=== PATIENT | female | born 1970 | race Two or more races ===

== ENCOUNTER 2018-12-08 06:44 | Emergency (ER) | payer SELFPAY ==
[~2018-12-08] VITALS: Ht 167.6 cm; Wt 59.0 kg
[2018-12-08 07:05] VITALS: BP 90/65
--- NOTE | 2018-12-08 07:05 | NUR ---
ED Nurse Note: pt walked in due to blood shot left eye started 3 days ago. pt denies pain, only discomfort. pt denies trauma. pt is seen by ermd. will continue to monitor.
--- NOTE | 2018-12-08 07:12 | Emergency Room Report ---
History of Present Illness General Chief Complaint: Eye Problems Source: Patient Present Illness HPI 48 year old female hx of smoking presents with redness of her left eye painless in nature that started 3 days ago, no aggravating or relieving factors, no change in vision. Patient denies any chest pain shortness of breath, patient presents for evaluation of her left eye. Allergies: Coded Allergies: No Known Allergies (Unverified , 12/08/18) Patient History Past Medical History: see triage record Social History: Reports: smoking Last Menstrual Period: 12/06/18 Now: No : 2 Para: 2 Reviewed Nursing Documentation: PMH: Agreed; PSxH: Agreed Nursing Documentation-PMH History Of Psychiatric Problem: Yes - anxiety Review of Systems Eye: Denies: eye pain, blurred vision, tearing, double vision, discharge All Other Systems: negative except mentioned in HPI Physical Exam Vital Signs Date Time Temp Pulse Resp B/P (MAP) Pulse Ox O2 Delivery O2 Flow Rate FiO2 12/08/18 06:52 97.9 75 16 90/65 (73) 97 Room Air Sp02 EP Interpretation: reviewed, normal General Appearance: well appearing, no apparent distress, alert Head: normocephalic, atraumatic Eyes: left eye other - Redness of the conjunctiva consistent with subconjunctival hemorrhage; bilateral eye PERRL, bilateral eye EOMI ENT: uvula midline, moist mucus membranes Neck: supple, thyroid normal, supple/symm/no masses Respiratory: lungs clear, no respiratory distress, no retraction, no accessory muscle use Cardiovascular #1: normal peripheral pulses, regular rate, rhythm, no edema, no gallop, no murmur Gastrointestinal: non tender, soft, no guarding, no rebound Musculoskeletal: normal inspection Neurologic: alert, oriented x3 Psychiatric: mood/affect normal Skin: no rash, warm/dry Medical Decision Making Diagnostic Impression: Primary Impression: Subconjunctival hemorrhage of left eye ER Course Patient with subconjunctival hemorrhage of the left eye no acute processes, repeat blood pressure normalized, patient reassured, smoking cessation counseling given to promote healing The patient was questioned about the use of tobacco products and subsequently identified as a SMOKER. As a result of this disclosure, I gave litigation counsel regarding the health risk and hazards of tobacco abuse and the benefits of smoking cessation. Time was allotted to answer questions and to provide information regarding counseling/modalities for assistance with quitting. Counseling included identifying barriers to change, suggesting specific actions for change, motivational counseling and follow up instructions. Time spent: 5 mins. Last Vital Signs Date Time Temp Pulse Resp B/P (MAP) Pulse Ox O2 Delivery O2 Flow Rate FiO2 12/08/18 06:52 97.9 75 16 90/65 (73) 97 Room Air Disposition: HOME, SELF-CARE Condition: Stable Referrals: OPHTHALMOLOGY Patient Instructions: Subconjunctival Hemorrhage Additional Instructions: The patient was provided with discharge instructions, notified to follow-up with a primary care doctor and or specialist in the next 24-48 hours, and to return to the ED if they have worsening of their symptoms. Please note that this report is being documented using [employer] technology. This can lead to erroneous entry secondary to incorrect interpretation by the dictating instrument. Temo Nunez M.D. Dec 08, 2018 07:12
[2018-12-08 07:17] VITALS: BP 90/65
--- NOTE | 2018-12-08 07:17 | NUR ---
ER DISCHARGE NOTE: Patient is cleared to be discharged per ERMD, pt is aox4, on room air, with stable vital signs. pt was given dc and prescription instructions, pt was able to verbalize understanding, pt id band removed without complications. pt is able to ambulate with steady gait. pt took all belongings.
== END 2018-12-08 07:17 | disposition home or self-care (01) ==
LOC: EMR 07:10
DX: H11.32 Conjunctival hemorrhage, left eye (principal); F41.9 Anxiety disorder, unspecified; F17.200 Nicotine dependence, unspecified, uncomplicated
CPT/HCPCS: 99282